=== PATIENT | female | born 1985 | race Caucasian/White ===

== ENCOUNTER 2019-10-06 11:28 | Emergency (ER) | payer BC ==
[2019-10-06] MEDS ORDERED: Sodium Chloride 0.9% 10 ML Syringe FLUSH PRN (11:38)
[2019-10-06] MEDS ORDERED: Ondansetron 4 MG/2 ML SDV IVPUSH ONE (11:38)
[2019-10-06] MEDS ORDERED: HYDROmorphone 1 MG/ML Syringe IVPUSH ONE ×2 (11:39→13:30)
[2019-10-06] MEDS ORDERED: Lactated Ringers 1,000 ML IV SCH (11:45)
--- NOTE | 2019-10-06 12:12 | EDM.PDOC ---
ED HPI GENERAL MEDICAL PROBLEM - General Chief Complaint: PIPEFITTER Problem Stated Complaint: 9WEEK PREG HEAVY BLEEDING/LIGHT HEADED/DIZZY Time Seen by Provider: 10/06/19 11:35 Source of Information: Reports: Patient History Limitations: Reports: No Limitations - History of Present Illness INITIAL COMMENTS - FREE TEXT/NARRATIVE: The patient presents with vaginal bleeding, abdominal pain and pelvic cramps. She is G1 at about 6 weeks gestation. Her LNMP was July 20. She says she had an US 3 days ago and it showed an IUP at 6 weeks 3 days and there was no heart beat. She sees Dr Gutierrez and he gave her some cytotek. The pain and bleeding started this morning at 3am. She was passing strawberry sized clots and possibly some tissue. She is pale and diaphoretic. She feels lightheaded. She has no fever, chest pain or shortness of breath. Onset: Sudden Duration: Hour(s): Location: Reports: Abdomen, Pelvis Quality: Reports: Sharp Severity: Severe Improves with: Reports: None Worsens with: Reports: None Associated Symptoms: Denies: Chest Pain, Cough, Fever/Chills, Headaches, Nausea/ Vomiting, Shortness of Breath Pelvic Pain Score (Numeric/FACES): 10 - Related Data Allergies Allergy/AdvReac Type Severity Reaction Status Date / Time No Known Allergies Allergy Verified 10/06/19 11:36 Home Meds: Home Meds Docosahexaenoic Acid [ Dha] 1 tab PO DAILY 10/06/19 [History] oxyCODONE HCl/Acetaminophen [Percocet 5-325 mg Tablet] 1 - 2 each PO Q6HR PRN # 20 tablet 10/06/19 [Rx] Past Medical History - Past Health History Medical/Surgical History: Denies Medical/Surgical History ED ROS GENERAL - Review of Systems Review Of Systems: See Below Constitutional: Reports: No Symptoms HEENT: Reports: No Symptoms Respiratory: Reports: No Symptoms Cardiovascular: Reports: No Symptoms Endocrine: Reports: No Symptoms GI/Abdominal: Reports: Abdominal Pain. Denies: Nausea, Vomiting : Reports: Other (Pelvic pain with vaginal bleeding) Musculoskeletal: Reports: No Symptoms Skin: Reports: Pallor ED EXAM - Physical Exam Exam: See Below Exam Limited By: No Limitations General Appearance: Mild Distress Ears: Normal External Exam Nose: Normal Inspection Head: Atraumatic, Normocephalic Neck: Normal Inspection Respiratory/Chest: No Respiratory Distress, Lungs Clear, Normal Breath Sounds Cardiovascular: Regular Rate, Rhythm, No Edema, No Murmur GI/Abdominal Exam: Soft, Non-Tender, No Organomegaly, No Mass (Female) Exam: Vaginal Bleeding (Moderate amount of vaginal bleeding a yok sack was removed and appeared intact. I removed some clots and it appears bleeding has slowed down.) Extremities: Normal Inspection Course - Vital Signs Last Recorded V/S: Last Vital Signs Temp 97.6 F 10/06/19 11:38 Pulse 72 10/06/19 11:38 Resp 24 H 10/06/19 11:38 BP 82/61 L 10/06/19 11:38 Pulse Ox 100 10/06/19 11:38 - Orders/Labs/Meds Orders: Active Orders 24 hr Category Date Time Status Pelvic Exam, Set Up [RC] ASDIRECTED Care 10/06/19 11:42 Active Peripheral IV Care [RC] . DIRECTED Care 10/06/19 11:39 Active Lactated Ringers [Ringers, Lactated] 1,000 ml Med 10/06/19 11:45 Active IV ASDIRECTED Sodium Chloride 0.9% [Saline Flush] Med 10/06/19 11:38 Active 10 ml FLUSH ASDIRECTED PRN ED Antiemetic Medication Reflex [OM.PC] Stat Oth 10/06/19 11:39 Ordered Peripheral IV Insertion Adult [OM.PC] Stat Oth 10/06/19 11:38 Ordered Medication Orders Lactated Ringer's (Ringers, Lactated) 1,000 mls @ 1,000 mls/hr IV ASDIRECTED IDANIA Last Admin: 10/06/19 11:48 Dose: 1,000 mls/hr Sodium Chloride (Saline Flush) 10 ml FLUSH ASDIRECTED PRN PRN Reason: Keep Vein Open Last Admin: 10/06/19 11:48 Dose: 10 ml Labs: Laboratory Tests 10/06/19 10/06/19 10/06/19 Range/Units 11:35 11:35 11:35 WBC 11.48 H (3.98-10.04) K/mm3 RBC 4.30 (3.98-5.22) M/mm3 Hgb 13.2 (11.2-15.7) gm/dl Hct 40.1 (34.1-44.9) % MCV 93.3 (79.4-94.8) fl MCH 30.7 (25.6-32.2) pg MCHC 32.9 (32.2-35.5) g/dl RDW Std Deviation 45.9 (36.4-46.3) fL Plt Count 400 H (182-369) K/mm3 MPV 10.2 (9.4-12.3) fl Neut % (Auto) 60.2 (34.0-71.1) % Lymph % (Auto) 30.9 (19.3-51.7) % [place] % (Auto) 7.7 (4.7-12.5) % Eos % (Auto) 0.7 (0.7-5.8) Baso % (Auto) 0.3 (0.1-1.2) % Neut # (Auto) 6.92 H (1.56-6.13) K/mm3 Lymph # (Auto) 3.55 (1.18-3.74) K/mm3 [place] # (Auto) 0.88 H (0.24-0.36) K/mm3 Eos # (Auto) 0.08 (0.04-0.36) K/mm3 Baso # (Auto) 0.03 (0.01-0.08) K/mm3 Manual Slide Review Normal smear Sodium 141 (136-145) mEq/L Potassium 3.4 L (3.5-5.1) mEq/L Chloride 105 (98-107) mEq/L Carbon Dioxide 22 (21-32) mEq/L Anion Gap 17.4 H (5-15) BUN 11 (7-18) mg/dL Creatinine 0.8 (0.55-1.02) mg/dL Est Cr Clr Drug Dosing 93.63 mL/min Estimated GFR (MDRD) > 60 (>60) mL/min BUN/Creatinine Ratio 13.8 L (14-18) Glucose 129 H (74-106) mg/dL Calcium 9.5 (8.5-10.1) mg/dL Total Bilirubin 1.0 (0.2-1.0) mg/dL AST 15 (15-37) U/L ALT 27 (14-59) U/L Alkaline Phosphatase 50 (46-116) U/L Total Protein 7.0 (6.4-8.2) g/dl Albumin 3.9 (3.4-5.0) g/dl Globulin 3.1 gm/dL Albumin/Globulin Ratio 1.3 (1-2) HCG, Quant 3708.0 mIU/mL Blood Type Gel Antibody Screen 10/06/19 Range/Units 11:35 WBC (3.98-10.04) K/mm3 RBC (3.98-5.22) M/mm3 Hgb (11.2-15.7) gm/dl Hct (34.1-44.9) % MCV (79.4-94.8) fl MCH (25.6-32.2) pg MCHC (32.2-35.5) g/dl RDW Std Deviation (36.4-46.3) fL Plt Count (182-369) K/mm3 MPV (9.4-12.3) fl Neut % (Auto) (34.0-71.1) % Lymph % (Auto) (19.3-51.7) % [place] % (Auto) (4.7-12.5) % Eos % (Auto) (0.7-5.8) Baso % (Auto) (0.1-1.2) % Neut # (Auto) (1.56-6.13) K/mm3 Lymph # (Auto) (1.18-3.74) K/mm3 [place] # (Auto) (0.24-0.36) K/mm3 Eos # (Auto) (0.04-0.36) K/mm3 Baso # (Auto) (0.01-0.08) K/mm3 Manual Slide Review Sodium (136-145) mEq/L Potassium (3.5-5.1) mEq/L Chloride (98-107) mEq/L Carbon Dioxide (21-32) mEq/L Anion Gap (5-15) BUN (7-18) mg/dL Creatinine (0.55-1.02) mg/dL Est Cr Clr Drug Dosing mL/min Estimated GFR (MDRD) (>60) mL/min BUN/Creatinine Ratio (14-18) Glucose (74-106) mg/dL Calcium (8.5-10.1) mg/dL Total Bilirubin (0.2-1.0) mg/dL AST (15-37) U/L ALT (14-59) U/L Alkaline Phosphatase (46-116) U/L Total Protein (6.4-8.2) g/dl Albumin (3.4-5.0) g/dl Globulin gm/dL Albumin/Globulin Ratio (1-2) HCG, Quant mIU/mL Blood Type O POSITIVE Gel Antibody Screen Negative Meds: Medications Generic Name Dose Route Start Last Admin Trade Name Freq PRN Reason Stop Dose Admin Lactated Ringer's 1,000 mls @ 1,000 mls/hr 10/06/19 11:45 10/06/19 11:48 Ringers, Lactated IV 1,000 mls/hr ASDIRECTED IDANIA Administration Sodium Chloride 10 ml 10/06/19 11:38 10/06/19 11:48 Saline Flush FLUSH 10 ml ASDIRECTED PRN Administration Keep Vein Open Discontinued Medications Generic Name Dose Route Start Last Admin Trade Name Donq PRN Reason Stop Dose Admin Hydromorphone HCl 1 mg 10/06/19 11:39 10/06/19 11:45 Dilaudid IVPUSH 10/06/19 11:40 1 mg ONETIME ONE Administration Hydromorphone HCl 1 mg 10/06/19 13:30 10/06/19 13:34 Dilaudid IVPUSH 10/06/19 13:31 1 mg ONETIME ONE Administration Ketorolac Tromethamine 30 mg 10/06/19 12:56 10/06/19 13:04 Toradol IVPUSH 10/06/19 12:57 30 mg ONETIME ONE Administration Ondansetron HCl 4 mg 10/06/19 11:38 10/06/19 11:48 Zofran IVPUSH 10/06/19 11:39 4 mg ONETIME ONE Administration - Re-Assessments/Exams Free Text/Narrative Re-Assessment/Exam: 10/06/19 14:12 I ordered an IV NS 1L bolus, zofran 4mg IV, dilaudid 1mg IV, labs, type and screen and an US. Her Hgb was 13.2. Her HCG is 3700 down from 9300 3 days ago. I did a pelvic exam and there was moderate bleeding and a removed a yok sac and it appeared intact. I also removed some clots. The US shows previous intrauterine gestational sac is no longer seen. Focal fluid is seen within the lower cervical canal possibly due to miscarriage in process. Ovaries appear within normal limits. She had more pain so I ordered toradol 30mg IV and dilaudid 1mg IV. I talked to Dr Gutierrez a couple times while the patient is here. 10/06/19 15:02 Her bleeding is better. I will give her another dose of dilaudid before she goes. I will give her something for pain at home and Dr Gutierrez wants her to take her cytotek tomorrow. Departure - Departure Time of Disposition: 15:10 Disposition: Home, Self-Care 01 Condition: Good Clinical Impression: Complete - Discharge Information *PRESCRIPTION DRUG MONITORING PROGRAM REVIEWED*: No *COPY OF PRESCRIPTION DRUG MONITORING REPORT IN PATIENT MARCUS: No Prescriptions: oxyCODONE HCl/Acetaminophen [Percocet 5-325 mg Tablet] 1 - 2 each PO Q6HR PRN # 20 tablet PRN Reason: Pain Referrals: Attila Gutierrez MD [Primary Care Provider] - 1 Week Forms: ED Department Discharge Additional Instructions: Drink plenty of fluids. Take motrin or tylenol for pain. If that does not help try the percocet. Take the cytotec as directed by Dr Gutierrez. Please return if your are worse such as more pain or bleeding. Sepsis Event Note (ED) - Evaluation Sepsis Screening Result: No Definite Risk - Focused Exam Vital Signs: Vital Signs Temp Pulse Resp BP Pulse Ox 10/06/19 11:38 97.6 F 72 24 H 82/61 L 100 - My Orders Last 24 Hours: My Active Orders 10/06/19 11:38 Sodium Chloride 0.9% [Saline Flush] 10 ml FLUSH ASDIRECTED PRN Peripheral IV Insertion Adult [OM.PC] Stat 10/06/19 11:39 Peripheral IV Care [RC] . DIRECTED ED Antiemetic Medication Reflex [OM.PC] Stat 10/06/19 11:42 Pelvic Exam, Set Up [RC] ASDIRECTED 10/06/19 11:45 Lactated Ringers [Ringers, Lactated] 1,000 ml IV ASDIRECTED - Assessment/Plan Last 24 Hours: My Active Orders 10/06/19 11:38 Sodium Chloride 0.9% [Saline Flush] 10 ml FLUSH ASDIRECTED PRN Peripheral IV Insertion Adult [OM.PC] Stat 10/06/19 11:39 Peripheral IV Care [RC] . DIRECTED ED Antiemetic Medication Reflex [OM.PC] Stat 10/06/19 11:42 Pelvic Exam, Set Up [RC] ASDIRECTED 10/06/19 11:45 Lactated Ringers [Ringers, Lactated] 1,000 ml IV ASDIRECTED
--- NOTE | 2019-10-06 12:55 | US ---
1st trimester obstetrical ultrasound: Multiple real-time images were obtained transvaginally. Comparison: Previous obstetrical ultrasound of 10/03/19. Findings: Previous intrauterine gestational sac is no longer seen. Focal fluid is seen within the lower cervical canal possibly due to miscarriage in process. Ovaries appear within normal limits. Impression: 1. Findings suspicious for miscarriage in process. Diagnostic code #3 This report was dictated in MDT
[2019-10-06] MEDS ORDERED: Ketorolac 30 MG/ML SDV IVPUSH ONE (12:56)
[2019-10-06] MEDS ORDERED: HYDROmorphone 0.5 MG/0.5 ML Syringe IVPUSH ONE (15:08)
== END 2019-10-06 15:27 | disposition home or self-care (01) ==
LOC: EEVIPCON 11:28 → JD.ED 11:28
DX: O03.9 Complete or unspecified spontaneous abortion without complication (principal); Z79.899 Other long term (current) drug therapy
CPT/HCPCS: 36415; 76817; 80053; 84702; 85025; 86850; 86900; 86901; 96361; 96374; 96375; 96376; 99284; J1170; J1885; J2405; J7120

== ENCOUNTER 2020-10-09 06:57 | Inpatient (IN) | payer BC ==
[~2020-10-09 06:57] MED LIST: Bupivacaine 0.25% 10 ML SDV ONE
[2020-10-09] MEDS ORDERED: Nalbuphine 10 MG/1 ML Vial IVPUSH PRN (14:48)
[2020-10-09] MEDS ORDERED: Ondansetron 4 MG/2 ML SDV IVPUSH PRN (14:48)
[2020-10-09] MEDS ORDERED: Sodium Chloride 0.9% 10 ML Syringe FLUSH PRN (14:48)
[2020-10-09] MEDS ORDERED: Oxytocin/Lactated Ringers 10 UNIT/1,000 ML BAG IV SCH ×2 (15:00)
[2020-10-09] MEDS: Lactated Ringers 1,000 ML IV SCH ×3 (15:44→23:45)
--- NOTE | 2020-10-09 17:28 | PCM.LDHP ---
L&D History of Present Illness - General Date of Service: 10/09/20 Admit Problem/Dx: Patient Status Order with Admit Dx/Problem 10/09/20 14:48 Patient Status [ADT] Routine Admission Diagnosis/Problem Admission Diagnosis/Problem Source of Information: Patient History Limitations: Reports: No Limitations - History of Present Illness Introduction:: Patient is a 35 y/o at 39 1/7 wks who presented to clinic today with concerns of several days of diarrhea. Evaluation in clinic showed one mild range BP and labs with a slightly elevated AST. 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: , Spontaneous : 2 Para: 0 LMP (Approximate): - Past Surgical History HEENT Surgical History: Reports: Adenoidectomy, Naso-Sinus Surgery, Tonsillectomy Social & Family History - Family History Family Medical History: No Pertinent Family History - Tobacco Use Tobacco Use Status *Q: Never Tobacco User Second Hand Smoke Exposure: No - Caffeine Use Caffeine Use: Reports: Coffee - Alcohol Use Alcohol Use History: No - Recreational Drug Use Recreational Drug Use: No H&P Review of Systems - Review of Systems: Review Of Systems: See Below General: Reports: No Symptoms Pulmonary: Reports: No Symptoms Cardiovascular: Reports: No Symptoms Gastrointestinal: Reports: Diarrhea, Nausea Genitourinary: Reports: No Symptoms Musculoskeletal: Reports: No Symptoms Psychiatric: Reports: No Symptoms Neurological: Reports: No Symptoms L&D Exam - Exam Exam: See Below - Vital Signs Vital Signs: Last Vital Signs Temp 36.6 C 10/09/20 14:48 Pulse 87 10/09/20 14:48 Resp 16 10/09/20 14:48 BP 140/98 H 10/09/20 14:48 Pulse Ox 98 10/09/20 14:48 Weight: 97.795 kg - OB Specific Movement: Active Heart Tones: Present Heart Tones per Min: 140 Heart Rate (FHR) Variability: Moderate (6-25 bmp) Presentation: Vertex - Colvin Score Colvin Score Cervix Position: Midposition Colvin Score Consistency: Soft Colvin Score Effacement: 51-70% Colvin Score Dilation: 3-4 cm Colvin Score 's Station: -2 Colvin Score Total: 8 - Exam General: Alert, Oriented, Cooperative Lungs: Clear to Auscultation, Normal Respiratory Effort Cardiovascular: Regular Rate, Regular Rhythm GI/Abdominal Exam: Soft, Non-Tender Genitourinary: Normal external exam Extremities: Normal Inspection Skin: Warm, Dry, Intact - Patient Data Lab Results Last 24 hrs: Laboratory Results - last 24 hr 10/09/20 10/09/20 Range/Units 15:05 15:05 WBC 7.38 (3.98-10.04) K/mm3 RBC 4.64 (3.98-5.22) M/mm3 Hgb 14.2 (11.2-15.7) gm/dl Hct 43.3 (34.1-44.9) % MCV 93.3 (79.4-94.8) fl MCH 30.6 (25.6-32.2) pg MCHC 32.8 (32.2-35.5) g/dl RDW Std Deviation 50.1 H (36.4-46.3) fL Plt Count 176 L D (182-369) K/mm3 MPV 11.9 (9.4-12.3) fl Neut % (Auto) 82.9 H (34.0-71.1) % Lymph % (Auto) 8.5 L (19.3-51.7) % [place] % (Auto) 7.0 (4.7-12.5) % Eos % (Auto) 1.4 (0.7-5.8) Baso % (Auto) 0.1 (0.1-1.2) % Neut # (Auto) 6.11 (1.56-6.13) K/mm3 Lymph # (Auto) 0.63 L (1.18-3.74) K/mm3 [place] # (Auto) 0.52 H (0.24-0.36) K/mm3 Eos # (Auto) 0.10 (0.04-0.36) K/mm3 Baso # (Auto) 0.01 (0.01-0.08) K/mm3 Manual Slide Review Abnormal smear Blood Type O POSITIVE Gel Antibody Screen Negative Result Diagrams: 10/09/20 15:05 - Problem List (1) 39 weeks gestation of SNOMED Code(s): 09963755 ICD Code: Z3A.39 - 39 WEEKS GESTATION OF Status: Acute Current Visit: Yes (2) Gestational hypertension SNOMED Code(s): 412556540 ICD Code: O13.9 - GESTATIONAL HTN W/O SIGNIFICANT PROTEINURIA, UNSP TRIMESTER Status: Acute Current Visit: Yes Qualifiers: Trimester: third trimester Qualified Code(s): O13.3 - Gestational [-induced] hypertension without significant proteinuria, third trimester Problem List Initiated/Reviewed/Updated: Yes Orders Last 24hrs: Active Orders 24 hr Category Date Time Status Patient Status [ADT] Routine ADT 10/09/20 14:48 Active Activity as Tolerated [RC] PFP Care 10/09/20 14:48 Active Communication Order [RC] ASDIRECTED Care 10/09/20 14:48 Active Heart Tones [RC] ASDIRECTED Care 10/09/20 14:49 Active Non Stress Test [RC] PER UNIT ROUTINE Care 10/09/20 14:48 Active Notify Provider [RC] PFP Care 10/09/20 14:48 Active Notify Provider [RC] PRN Care 10/09/20 14:48 Active Peripheral IV Care [RC] . DIRECTED Care 10/09/20 14:49 Active Pump Management, Intrathecal [RC] ASDIRECTED Care 10/09/20 14:49 Active Vital Signs [RC] PER UNIT ROUTINE Care 10/09/20 14:48 Active Regular Diet [DIET] Diet 10/09/20 Breakfast Active CORONAVIRUS COVID-19 ANTOINETTE [MOLEC] Stat Lab 10/09/20 15:11 Received HEP C VIRUS AB [REF] Stat Lab 10/09/20 15:05 Received RAPID PLASMA REAGIN,RPR [CHEM] Routine Lab 10/09/20 15:05 Received Lactated Ringers [Ringers, Lactated] 1,000 ml Med 10/09/20 15:00 Active IV ASDIRECTED Nalbuphine [Nubain] Med 10/09/20 14:48 Active 10 mg IVPUSH Q2H PRN Ondansetron [Zofran] Med 10/09/20 14:48 Active 4 mg IVPUSH Q4H PRN Oxytocin/Lactated Ringers [Pitocin in LR 10 Units/1,000 Med 10/09/20 15:00 Active ML] 10 unit in 1,000 ml IV .CONTINUOUS Oxytocin/Lactated Ringers [Pitocin in LR 10 Units/1,000 Med 10/09/20 15:00 Active ML] 10 unit in 1,000 ml IV TITRATE Sodium Chloride 0.9% [Saline Flush] Med 10/09/20 14:48 Active 10 ml FLUSH ASDIRECTED PRN Electronic Heart Tones Ext w TOCO [WOMSER] Oth 10/09/20 14:48 Ordered Routine Electronic Heart Tones Internal [WOMSER] Per Unit Ot 10/09/20 14:48 Ordered Routine Peripheral IV Insertion Adult [OM.PC] Routine Ot 10/09/20 14:48 Ordered Resuscitation Status Routine Resus Stat 10/09/20 14:48 Ordered Medication Orders Oxytocin/Lactated Ringer's (Pitocin In Lr 10 Units/1,000 Ml) 10 unit in 1,000 mls @ 12 mls/hr IV TITRATE IDANIA; Protocol Last Admin: 10/09/20 15:44 Dose: 2 munits/min, 12 mls/hr Documented by: NEW Oxytocin/Lactated Ringer's (Pitocin In Lr 10 Units/1,000 Ml) 10 unit in 1,000 mls @ 500 mls/hr IV .CONTINUOUS IDANIA Lactated Ringer's (Ringers, Lactated) 1,000 mls @ 100 mls/hr IV ASDIRECTED IDANIA Last Admin: 10/09/20 15:44 Dose: 100 mls/hr Documented by: NEW Nalbuphine HCl (Nalbuphine 10 Mg/1 Ml Vial) 10 mg IVPUSH Q2H PRN PRN Reason: Pain Ondansetron HCl (Ondansetron 4 Mg/2 Ml Sdv) 4 mg IVPUSH Q4H PRN PRN Reason: Nausea/Vomiting Sodium Chloride (Sodium Chloride 0.9% 10 Ml Syringe) 10 ml FLUSH ASDIRECTED PRN PRN Reason: Keep Vein Open Assessment/Plan Comment:: * Labs done previously in [place]. Will repeat in 0400 if patient still undelivered * Pitocin for IOL. AROM when able * GBS negative, no need for antibiotics * Pain management per patient preference * Anticipate
[2020-10-09] MEDS ORDERED: fentaNYL 100 MCG/2 ML SDV EPIDUR PRN (22:12)
[2020-10-09] MEDS ORDERED: diphenhydrAMINE 50 MG/ML SDV IVPUSH PRN (22:12)
[2020-10-09] MEDS ORDERED: Bupivacaine/fentaNYL/NS 100 ML Bag EPIDUR PRN (22:12)
[2020-10-09] MEDS ORDERED: ePHEDrine 50 MG/ML SDV IVPUSH PRN (22:12)
--- NOTE | 2020-10-09 22:19 | PCM.PREANE ---
Preanesthetic Assessment - Procedure Proposed Procedure: Labor epidural - Anesthesia/Transfusion/Family Hx Anesthesia History: Prior Anesthesia Without Reaction Family History of Anesthesia Reaction: No Transfusion History: No Prior Transfusion(s) Intubation History: Unknown - Review of Systems General: Weakness Pulmonary: No Symptoms Cardiovascular: No Symptoms Gastrointestinal: Diarrhea Neurological: Paresthesia (Sciatic pain down right leg - intermittent) Other: Reports: None - Physical Assessment NPO Status Date: 10/09/20 NPO Status Time: 17:30 Vital Signs: Last Vital Signs Temp 97.8 F 10/09/20 14:48 Pulse 87 10/09/20 14:48 Resp 16 10/09/20 14:48 BP 140/98 H 10/09/20 14:48 Pulse Ox 98 10/09/20 14:48 Height: 1.65 m Weight: 97.795 kg ASA Class: 2 Mental Status: Alert & Oriented x3 Airway Class: Mallampati = 2 Dentition: Reports: Normal Dentition Thyro-Mental Finger Breadths: 3 Mouth Opening Finger Breadths: 3 ROM/Head Extension: Full Lungs: Clear to Auscultation, Normal Respiratory Effort Cardiovascular: Regular Rate, Regular Rhythm - Lab Values: Laboratory Last Values WBC 7.38 K/mm3 (3.98-10.04) 10/09/20 15:05 RBC 4.64 M/mm3 (3.98-5.22) 10/09/20 15:05 Hgb 14.2 gm/dl (11.2-15.7) 10/09/20 15:05 Hct 43.3 % (34.1-44.9) 10/09/20 15:05 MCV 93.3 fl (79.4-94.8) 10/09/20 15:05 MCH 30.6 pg (25.6-32.2) 10/09/20 15:05 MCHC 32.8 g/dl (32.2-35.5) 10/09/20 15:05 RDW Std Deviation 50.1 fL (36.4-46.3) H 10/09/20 15:05 Plt Count 176 K/mm3 (182-369) L D 10/09/20 15:05 MPV 11.9 fl (9.4-12.3) 10/09/20 15:05 Neut % (Auto) 82.9 % (34.0-71.1) H 10/09/20 15:05 Lymph % (Auto) 8.5 % (19.3-51.7) L 10/09/20 15:05 [place] % (Auto) 7.0 % (4.7-12.5) 10/09/20 15:05 Eos % (Auto) 1.4 (0.7-5.8) 10/09/20 15:05 Baso % (Auto) 0.1 % (0.1-1.2) 10/09/20 15:05 Neut # (Auto) 6.11 K/mm3 (1.56-6.13) 10/09/20 15:05 Lymph # (Auto) 0.63 K/mm3 (1.18-3.74) L 10/09/20 15:05 [place] # (Auto) 0.52 K/mm3 (0.24-0.36) H 10/09/20 15:05 Eos # (Auto) 0.10 K/mm3 (0.04-0.36) 10/09/20 15:05 Baso # (Auto) 0.01 K/mm3 (0.01-0.08) 10/09/20 15:05 Manual Slide Review Abnormal smear 10/09/20 15:05 SARS-CoV-2 RNA (ANTOINETTE) Negative (NEGATIVE) 10/09/20 15:11 Blood Type O POSITIVE 10/09/20 15:05 Gel Antibody Screen Negative 10/09/20 15:05 - Allergies Allergies/Adverse Reactions: Allergies Allergy/AdvReac Type Severity Reaction Status Date / Time No Known Allergies Allergy Verified 10/09/20 14:15 - Blood Blood Available: No Product(s) Available: None - Anesthesia Plan Pre-Op Medication Ordered: None - Acknowledgements Anesthesia Type Planned: Epidural Pt an Appropriate Candidate for the Planned Anesthesia: Yes Alternatives and Risks of Anesthesia Discussed w Pt/Guardian: Yes Pt/Guardian Understands and Agrees with Anesthesia Plan: Yes PreAnesthesia Questionnaire - Past Health History Medical/Surgical History: Denies 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: Endocrine/Metabolic History: Reports: Obesity/BMI 30+ - Past Surgical History HEENT Surgical History: Reports: Adenoidectomy, Naso-Sinus Surgery, Tonsillectomy - SUBSTANCE USE Tobacco Use Status *Q: Never Tobacco User Second Hand Smoke Exposure: No Recreational Drug Use History: No - HOME MEDS Home Medications: Home Meds Docosahexaenoic Acid [ Dha] 1 tab PO DAILY 10/06/19 [History] oxyCODONE HCl/Acetaminophen [Percocet 5-325 mg Tablet] 1 - 2 each PO Q6HR PRN #20 tablet 10/06/19 [Rx] - CURRENT (IN HOUSE) MEDS Current Meds: Current Medications Diphenhydramine HCl (Diphenhydramine 50 Mg/Ml Sdv) 25 mg IVPUSH Q6H PRN PRN Reason: pruritis Ephedrine Sulfate (Ephedrine 50 Mg/Ml Sdv) 5 mg IVPUSH ASDIRECTED PRN PRN Reason: Hypotension Fentanyl (Fentanyl 100 Mcg/2 Ml Sdv) 100 mcg EPIDUR Q3H PRN PRN Reason: Pain Fentanyl/Bupivacaine HCl (Bupivacaine/Fentanyl/Ns 100 Ml Bag) 100 ml EPIDUR ASDIRECTED PRN PRN Reason: Pain Oxytocin/Lactated Ringer's (Pitocin In Lr 10 Units/1,000 Ml) 10 unit in 1,000 mls @ 12 mls/hr IV TITRATE IDANIA; Protocol Last Titration: 10/09/20 18:52 Dose: 8 munits/min, 48 mls/hr Documented by: Oxytocin/Lactated Ringer's (Pitocin In Lr 10 Units/1,000 Ml) 10 unit in 1,000 mls @ 500 mls/hr IV .CONTINUOUS IDANIA Lactated Ringer's (Ringers, Lactated) 1,000 mls @ 100 mls/hr IV ASDIRECTED IDANIA Last Admin: 10/09/20 15:44 Dose: 100 mls/hr Documented by: Nalbuphine HCl (Nalbuphine 10 Mg/1 Ml Vial) 10 mg IVPUSH Q2H PRN PRN Reason: Pain Last Admin: 10/09/20 21:44 Dose: 10 mg Documented by: Ondansetron HCl (Ondansetron 4 Mg/2 Ml Sdv) 4 mg IVPUSH Q4H PRN PRN Reason: Nausea/Vomiting Sodium Chloride (Sodium Chloride 0.9% 10 Ml Syringe) 10 ml FLUSH ASDIRECTED PRN PRN Reason: Keep Vein Open
[2020-10-10] MEDS ORDERED: Docusate Sodium 100 MG Cap PO PRN (06:59)
--- NOTE | 2020-10-10 06:59 | PCM.DEL ---
L & D Note - General Info Date of Service: 10/10/20 - Delivery Note Labor: Induced by Oxytocin Delivery Outcome: Livebirth Infant Delivery Method: Spontaneous Vaginal Delivery-Single Delivery Mode: Spontaneous Presentation: Right Occiput Anterior (ABRIL) Nuchal Cord: None Anesthesia Type: Epidural Amniotic Fluid Description: Clear Episiotomy Type: None Laceration: 2nd Degree, Perineal, Vaginal Suture type: Vicryl Suture size: 2-0 Placenta: Intact, Spontaneous Cord: 3 Vessels Estimated Blood Loss: 250 Resuscitation Needed: Yes [place]: Bulb Syringe, Stimulated, Warmed, [place] Used Delivery Comments (Free Text/Narrative):: Patient found to be complete and began pushing. With maternal pushing effort head delivered from ABRIL presentation. No nuchal cord present. With gentle downward traction the shoulders and body delivered. Infant placed on maternal abdomen. Cord clamped and cut. Cord blood obtained Placenta allowed time to separate and expelled intact. Inspection of perineum showed a 2nd degree laceration which was repaired with a 2-0 Vicryl in the typical fashion - General Info Date of Service: 10/10/20 - Patient Data Vitals - Most Recent: Last Vital Signs Temp 36.6 C 10/09/20 14:48 Pulse 87 10/09/20 14:48 Resp 16 10/09/20 14:48 BP 140/98 H 10/09/20 14:48 Pulse Ox 98 10/09/20 14:48 Weight - Most Recent: 97.795 kg - Problem List & Annotations (1) 39 weeks gestation of SNOMED Code(s): 07971482 Code(s): Z3A.39 - 39 WEEKS GESTATION OF Status: Acute Current Visit: Yes (2) Gestational hypertension SNOMED Code(s): 581976206 Code(s): O13.9 - GESTATIONAL HTN W/O SIGNIFICANT PROTEINURIA, UNSP TRIMESTER Status: Acute Current Visit: Yes Qualifiers: Trimester: third trimester Qualified Code(s): O13.3 - Gestational [-induced] hypertension without significant proteinuria, third trimester (3) Vaginal delivery SNOMED Code(s): 651418299 Code(s): O80 - ENCOUNTER FOR FULL-TERM UNCOMPLICATED DELIVERY Status: Acute Current Visit: Yes - Problem List Review Problem List Initiated/Reviewed/Updated: Yes - My Orders Last 24 Hours: My Active Orders 10/09/20 Breakfast Regular Diet [DIET] 10/09/20 14:48 Patient Status [ADT] Routine Activity as Tolerated [RC] PFP Communication Order [RC] ASDIRECTED Non Stress Test [RC] PER UNIT ROUTINE Notify Provider [RC] PFP Notify Provider [RC] PRN Vital Signs [RC] PER UNIT ROUTINE Nalbuphine [Nubain] 10 mg IVPUSH Q2H PRN Ondansetron [Zofran] 4 mg IVPUSH Q4H PRN Sodium Chloride 0.9% [Saline Flush] 10 ml FLUSH ASDIRECTED PRN Electronic Heart Tones Ext w TOCO [WOMSER] Routine Electronic Heart Tones Internal [WOMSER] Per Unit Routine Peripheral IV Insertion Adult [OM.PC] Routine Resuscitation Status Routine 10/09/20 14:49 Heart Tones [RC] ASDIRECTED Peripheral IV Care [RC] . DIRECTED Pump Management, Intrathecal [RC] ASDIRECTED 10/09/20 15:00 Lactated Ringers [Ringers, Lactated] 1,000 ml IV ASDIRECTED Oxytocin/Lactated Ringers [Pitocin in LR 10 Units/1,000 ML] 10 unit in 1,000 ml IV .CONTINUOUS Oxytocin/Lactated Ringers [Pitocin in LR 10 Units/1,000 ML] 10 unit in 1,000 ml IV TITRATE 10/09/20 15:05 HEP C VIRUS AB [REF] Stat 10/10/20 06:57 Patient Status Manage Transfer [TRANSFER] Routine - Assessment Assessment:: PPD#0 - Plan Plan:: * Routine cares * Breast feeding * Monitor BP's * Discharge home in 1-2 days
[2020-10-10] MEDS: Benzocaine/Menthol 20%-0.5% Spray 56 GM Canister TOP PRN (07:55)
[2020-10-10] MEDS: Ibuprofen 600 MG Tab PO PRN ×4 (07:57→22:57)
[2020-10-10] MEDS: Witch Hazel Medicated Pads 40/Jar TOP PRN ×2 (07:57→22:57)
--- NOTE | 2020-10-10 08:21 | PCM48HPAN ---
Post Anesthesia Note - EVALUATION WITHIN 48HRS OF ANESTHETIC Vital Signs in Normal Range: Yes Patient Participated in Evaluation: Yes Respiratory Function Stable: Yes Airway Patent: Yes Cardiovascular Function Stable: Yes Hydration Status Stable: Yes Pain Control Satisfactory: Yes Nausea and Vomiting Control Satisfactory: Yes Mental Status Recovered: Yes Vital Signs: Last Vital Signs Temp 36.6 C 10/09/20 14:48 Pulse 87 10/09/20 14:48 Resp 16 10/09/20 14:48 BP 140/98 H 10/09/20 14:48 Pulse Ox 98 10/09/20 14:48 - COMMENTS/OBSERVATIONS Free Text/Narrative:: Tessa is sitting up in bed nursing her baby this morning. She has been up moving and has voided. She has no further questions or concerns regarding her epidural.
[2020-10-10] MEDS ORDERED: Atropine/Diphenoxylate 0.025-2.5 MG Tab PO ONE (14:41)
[2020-10-11] MEDS: Acetaminophen 325 MG Tab PO PRN ×2 (01:05→06:18)
[2020-10-11] MEDS: Ibuprofen 600 MG Tab PO PRN (03:11)
--- NOTE | 2020-10-11 06:52 | PCM.PNPP ---
- General Info Date of Service: 10/11/20 Functional Status: Reports: Pain Controlled, Tolerating Diet, Ambulating, Urinating - Review of Systems General: Reports: No Symptoms Pulmonary: Reports: No Symptoms Cardiovascular: Reports: No Symptoms Gastrointestinal: Reports: Diarrhea (Rare, lessening. ), Flatus Genitourinary: Reports: No Symptoms - Patient Data Vital Signs - Most Recent: Last Vital Signs Temp 36.2 C 10/11/20 03:13 Pulse 77 10/11/20 03:13 Resp 16 10/11/20 03:13 BP 122/74 10/11/20 03:13 Pulse Ox 98 10/11/20 03:13 Weight - Most Recent: 97.795 kg I&O - Last 24 Hours: Intake & Output 10/10/20 10/10/20 10/11/20 14:59 22:59 06:59 Intake Total 120 240 Balance 120 240 Med Orders - Current: Current Medications Acetaminophen (Acetaminophen 325 Mg Tab) 650 mg PO Q4H PRN PRN Reason: mild pain or fever Last Admin: 10/11/20 06:18 Dose: 650 mg Documented by: Benzocaine/Menthol (Benzocaine/Menthol 20%-0.5% Esmond 56 Gm Canister) 0 gm TOP ASDIRECTED PRN PRN Reason: Perineal Comfort Measure Last Admin: 10/10/20 07:55 Dose: 1 can Documented by: Docusate Sodium (Docusate Sodium 100 Mg Cap) 100 mg PO BID PRN PRN Reason: Constipation Last Admin: 10/10/20 07:58 Dose: 100 mg Documented by: Ibuprofen (Ibuprofen 600 Mg Tab) 600 mg PO Q4H PRN PRN Reason: Mild pain or fever Last Admin: 10/11/20 03:11 Dose: 600 mg Documented by: Elder Koo (Elder Williamel Medicated Pads 40/Jar) 1 pad TOP ASDIRECTED PRN PRN Reason: Perineal Comfort Measure Last Admin: 10/10/20 22:57 Dose: 1 tub Documented by: Discontinued Medications Bupivacaine HCl (Bupivacaine 0.25% 10 Ml Sdv) 10 ml .ROUTE .STK-MED ONE Stop: 10/09/20 00:01 Diphenhydramine HCl (Diphenhydramine 50 Mg/Ml Sdv) 25 mg IVPUSH Q6H PRN PRN Reason: pruritis Diphenoxylate HCl/Atropine (Atropine/Diphenoxylate 0.025-2.5 Mg Tab) 1 tab PO ONETIME ONE Stop: 10/10/20 14:42 Last Admin: 10/10/20 15:06 Dose: 1 tab Documented by: Ephedrine Sulfate (Ephedrine 50 Mg/Ml Sdv) 5 mg IVPUSH ASDIRECTED PRN PRN Reason: Hypotension Last Admin: 10/09/20 23:56 Dose: 5 mg Documented by: Fentanyl (Fentanyl 100 Mcg/2 Ml Sdv) 100 mcg EPIDUR Q3H PRN PRN Reason: Pain Last Admin: 10/09/20 22:17 Dose: 100 mcg Documented by: Fentanyl/Bupivacaine HCl (Bupivacaine/Fentanyl/Ns 100 Ml Bag) 100 ml EPIDUR ASDIRECTED PRN PRN Reason: Pain Last Admin: 10/09/20 22:17 Dose: 100 ml Documented by: Oxytocin/Lactated Ringer's (Pitocin In Lr 10 Units/1,000 Ml) 10 unit in 1,000 mls @ 12 mls/hr IV TITRATE IDANIA; Protocol Last Titration: 10/10/20 04:00 Dose: 83.33 munits/min, 500 mls/hr Documented by: Oxytocin/Lactated Ringer's (Pitocin In Lr 10 Units/1,000 Ml) 10 unit in 1,000 mls @ 500 mls/hr IV .CONTINUOUS IDANIA Last Admin: 10/10/20 04:30 Dose: 500 mls/hr Documented by: Lactated Ringer's (Ringers, Lactated) 1,000 mls @ 100 mls/hr IV ASDIRECTED IDANIA Last Admin: 10/09/20 23:45 Dose: 100 mls/hr Documented by: Nalbuphine HCl (Nalbuphine 10 Mg/1 Ml Vial) 10 mg IVPUSH Q2H PRN PRN Reason: Pain Last Admin: 10/09/20 21:44 Dose: 10 mg Documented by: Ondansetron HCl (Ondansetron 4 Mg/2 Ml Sdv) 4 mg IVPUSH Q4H PRN PRN Reason: Nausea/Vomiting Sodium Chloride (Sodium Chloride 0.9% 10 Ml Syringe) 10 ml FLUSH ASDIRECTED PRN PRN Reason: Keep Vein Open - Interaction Infant Disposition, : [place] in Room with Family Infant Interaction: Holding Infant Feeding: Attempted ; Nursed Fair/Poor, Continues to Breastfeed Support Person: - Recovery Exam Fundal Tone: Firm Fundal Level: 2 Fingerbreadths Below Umbilicus Fundal Placement: Midline Lochia Amount: Small Lochia Color: Rubra/Red Perineum Description: Edematous Other Perinuem Description: Second degree laceration with repair Episiotomy/Laceration: Approximated Bladder Status: Voiding Urinary Elimination: Voided - Exam General: Alert, Oriented, Cooperative GI/Abdominal Exam: Soft - Problem List & Annotations (1) 39 weeks gestation of SNOMED Code(s): 46916522 Code(s): Z3A.39 - 39 WEEKS GESTATION OF Status: Acute (2) Gestational hypertension SNOMED Code(s): 122990609 Code(s): O13.9 - GESTATIONAL HTN W/O SIGNIFICANT PROTEINURIA, UNSP TRIMESTER Status: Acute Qualifiers: Trimester: third trimester Qualified Code(s): O13.3 - Gestational [-induced] hypertension without significant proteinuria, third trimester (3) Vaginal delivery SNOMED Code(s): 427827277 Code(s): O80 - ENCOUNTER FOR FULL-TERM UNCOMPLICATED DELIVERY Status: Acute - Problem List Review Problem List Initiated/Reviewed/Updated: Yes - My Orders Last 24 Hours: My Active Orders 10/10/20 06:59 Acetaminophen [TylenoL] 650 mg PO Q4H PRN Benzocaine/Menthol [Dermoplast Pain Relief Esmond] See Dose Instructions TOP ASDIRECTED PRN Docusate Sodium [Colace] 100 mg PO BID PRN Ibuprofen [Motrin] 600 mg PO Q4H PRN witch Hanane [Tucks] 1 pad TOP ASDIRECTED PRN 10/10/20 06:59 Activity as Tolerated [RC] PER UNIT ROUTINE Up ad Janie [RC] ASDIRECTED Vital Signs [RC] 03,,15,21 Assess Lochia [WOMSER] Per Unit Routine Assess Uterine Involution [WOMSER] Per Unit Routine Breast Pump [WOMSER] Per Unit Routine Perineal Care [OM.PC] Per Unit Routine Peripheral IV Discontinue [OM.PC] Routine Sitz Bath [OM.PC] Per Unit Routine 10/10/20 Breakfast Regular Diet [DIET] Heat Therapy [OM.PC] PRN 10/11/20 07:00 Heat Therapy [JOSE] PRN - Assessment Assessment:: PPD#1 - Plan Plan:: * Routine cares * Breast feeding * Monitor BP's, have been normal range * Discharge home today, BP check in 1 week, check in 3 weeks
--- NOTE | 2020-10-11 10:15 | PCM.DCSUM1 ---
Discharge Summary - Discharge Data Discharge Date: 10/11/20 Discharge Disposition: Home, Self-Care 01 Condition: Good - Referral to Home Health Primary Care Physician: Eliane Ring MD - Discharge Diagnosis/Problem(s) (1) 39 weeks gestation of SNOMED Code(s): 01339917 ICD Code: Z3A.39 - 39 WEEKS GESTATION OF Status: Acute (2) Gestational hypertension SNOMED Code(s): 538678974 ICD Code: O13.9 - GESTATIONAL HTN W/O SIGNIFICANT PROTEINURIA, UNSP TRIMESTER Status: Acute Qualifiers: Trimester: third trimester Qualified Code(s): O13.3 - Gestational [-induced] hypertension without significant proteinuria, third trimester (3) Vaginal delivery SNOMED Code(s): 417544653 ICD Code: O80 - ENCOUNTER FOR FULL-TERM UNCOMPLICATED DELIVERY Status: Acute - Patient Summary/Data Complications: None Consults: None Recommended Follow-up Testing/Procedures: Follow up in 1 week for BP check and 3 weeks for check Hospital Course: 35 y/o at 39 1/7 wks who presented for IOL for findings of clinic elevated BP. Concerns for gestational HTN. Induction done with pitocin. Did have SROM and then progressed well to complete dilation. Underwent an uncomplicated . See delivery note. BP's in normal range. Was discharged home on PPD#1 - Patient Instructions Diet: Regular Diet as Tolerated Activity: As Tolerated Activity, Other: pelvic rest for 6 weeks Driving: May Drive Today Showering/Bathing: May Shower Showering/Bathing, Other: May bathe Notify Provider of: Fever, Increased Pain, Swelling and Redness, Drainage, Nausea and/or Vomiting - Discharge Plan *PRESCRIPTION DRUG MONITORING PROGRAM REVIEWED*: No *COPY OF PRESCRIPTION DRUG MONITORING REPORT IN PATIENT MARCUS: No Home Medications: Home Meds Docosahexaenoic Acid [ Dha] 1 tab PO DAILY 10/06/19 [History] Docusate Sodium [Colace] 100 mg PO BID PRN cap 10/11/20 [Rx] Patient Handouts: Mastitis, and Self-Care, [id number], Breast Engorgement, Care After Vaginal Delivery Referrals: Eliane Ring MD [Primary Care Provider] - (1 week for BP check 3 weeks for check ) - Discharge Summary/Plan Comment DC Time >30 min.: No - Patient Data Vitals - Most Recent: Last Vital Signs Temp 36.2 C 10/11/20 03:13 Pulse 77 10/11/20 03:13 Resp 16 10/11/20 03:13 BP 122/74 10/11/20 03:13 Pulse Ox 98 10/11/20 03:13 Weight - Most Recent: 97.795 kg I&O - Last 24 hours: Intake & Output 10/10/20 10/11/20 10/11/20 22:59 06:59 14:59 Intake Total 240 Balance 240 Lab Results - Last 24 hrs: Laboratory Results - last 24 hr 10/11/20 10/11/20 Range/Units 07:12 07:12 WBC 9.22 (3.98-10.04) K/mm3 RBC 3.43 L (3.98-5.22) M/mm3 Hgb 10.5 L D (11.2-15.7) gm/dl Hct 32.2 L (34.1-44.9) % MCV 93.9 (79.4-94.8) fl MCH 30.6 (25.6-32.2) pg MCHC 32.6 (32.2-35.5) g/dl RDW Std Deviation 48.6 H (36.4-46.3) fL Plt Count 205 (182-369) K/mm3 MPV 11.1 (9.4-12.3) fl Sodium 141 (136-145) mEq/L Potassium 4.1 (3.5-5.1) mEq/L Chloride 108 H (98-107) mEq/L Carbon Dioxide 22 (21-32) mEq/L Anion Gap 15.1 H (5-15) BUN 8 (7-18) mg/dL Creatinine 0.8 (0.55-1.02) mg/dL Est Cr Clr Drug Dosing 89.16 mL/min Estimated GFR (MDRD) > 60 (>60) mL/min BUN/Creatinine Ratio 10.0 L (14-18) Glucose 84 (70-99) mg/dL Calcium 8.3 L (8.5-10.1) mg/dL Total Bilirubin 0.2 (0.2-1.0) mg/dL AST 48 H (15-37) U/L ALT 54 (14-59) U/L Alkaline Phosphatase 136 H (46-116) U/L Total Protein 5.3 L (6.4-8.2) g/dl Albumin 2.3 L (3.4-5.0) g/dl Globulin 3.0 gm/dL Albumin/Globulin Ratio 0.8 L (1-2) Med Orders - Current: Current Medications Acetaminophen (Acetaminophen 325 Mg Tab) 650 mg PO Q4H PRN PRN Reason: mild pain or fever Last Admin: 10/11/20 06:18 Dose: 650 mg Documented by: Benzocaine/Menthol (Benzocaine/Menthol 20%-0.5% [place] 56 Gm Canister) 0 gm TOP ASDIRECTED PRN PRN Reason: Perineal Comfort Measure Last Admin: 10/10/20 07:55 Dose: 1 can Documented by: Docusate Sodium (Docusate Sodium 100 Mg Cap) 100 mg PO BID PRN PRN Reason: Constipation Last Admin: 10/10/20 07:58 Dose: 100 mg Documented by: Ibuprofen (Ibuprofen 600 Mg Tab) 600 mg PO Q4H PRN PRN Reason: Mild pain or fever Last Admin: 10/11/20 03:11 Dose: 600 mg Documented by: Elder Koo (Witch Hanane Medicated Pads 40/Jar) 1 pad TOP ASDIRECTED PRN PRN Reason: Perineal Comfort Measure Last Admin: 10/10/20 22:57 Dose: 1 tub Documented by: Discontinued Medications Bupivacaine HCl (Bupivacaine 0.25% 10 Ml Sdv) 10 ml .ROUTE .STK-MED ONE Stop: 10/09/20 00:01 Diphenhydramine HCl (Diphenhydramine 50 Mg/Ml Sdv) 25 mg IVPUSH Q6H PRN PRN Reason: pruritis Diphenoxylate HCl/Atropine (Atropine/Diphenoxylate 0.025-2.5 Mg Tab) 1 tab PO ONETIME ONE Stop: 10/10/20 14:42 Last Admin: 10/10/20 15:06 Dose: 1 tab Documented by: Ephedrine Sulfate (Ephedrine 50 Mg/Ml Sdv) 5 mg IVPUSH ASDIRECTED PRN PRN Reason: Hypotension Last Admin: 10/09/20 23:56 Dose: 5 mg Documented by: Fentanyl (Fentanyl 100 Mcg/2 Ml Sdv) 100 mcg EPIDUR Q3H PRN PRN Reason: Pain Last Admin: 10/09/20 22:17 Dose: 100 mcg Documented by: Fentanyl/Bupivacaine HCl (Bupivacaine/Fentanyl/Ns 100 Ml Bag) 100 ml EPIDUR ASDIRECTED PRN PRN Reason: Pain Last Admin: 10/09/20 22:17 Dose: 100 ml Documented by: Oxytocin/Lactated Ringer's (Pitocin In Lr 10 Units/1,000 Ml) 10 unit in 1,000 mls @ 12 mls/hr IV TITRATE IDANIA; Protocol Last Titration: 10/10/20 04:00 Dose: 83.33 munits/min, 500 mls/hr Documented by: Oxytocin/Lactated Ringer's (Pitocin In Lr 10 Units/1,000 Ml) 10 unit in 1,000 mls @ 500 mls/hr IV .CONTINUOUS IDANIA Last Admin: 10/10/20 04:30 Dose: 500 mls/hr Documented by: Lactated Ringer's (Ringers, Lactated) 1,000 mls @ 100 mls/hr IV ASDIRECTED IDANIA Last Admin: 10/09/20 23:45 Dose: 100 mls/hr Documented by: Nalbuphine HCl (Nalbuphine 10 Mg/1 Ml Vial) 10 mg IVPUSH Q2H PRN PRN Reason: Pain Last Admin: 10/09/20 21:44 Dose: 10 mg Documented by: Ondansetron HCl (Ondansetron 4 Mg/2 Ml Sdv) 4 mg IVPUSH Q4H PRN PRN Reason: Nausea/Vomiting Sodium Chloride (Sodium Chloride 0.9% 10 Ml Syringe) 10 ml FLUSH ASDIRECTED PRN PRN Reason: Keep Vein Open
[2020-10-11] MEDS: Benzocaine/Menthol 20%-0.5% Spray 56 GM Canister TOP PRN (12:11)
== END 2020-10-11 14:20 | disposition home or self-care (01) | DRG 560 ==
LOC: JD.OB 06:57 → OBSVTOIN 10-10 06:57
PROVIDERS: ADMIT Obstetrics & Gynecology; ATTEND Obstetrics & Gynecology
PROC: 10E0XZZ Delivery of Products of Conception, External Approach (ICD-10-PCS; principal; 2020-10-10)
PROC: 3E033VJ Introduction of Other Hormone into Peripheral Vein, Percutaneous Approach (ICD-10-PCS; 2020-10-10)
PROC: 0KQM0ZZ Repair Perineum Muscle, Open Approach (ICD-10-PCS; 2020-10-10)
PROC: 3E0R3BZ Introduction of Anesthetic Agent into Spinal Canal, Percutaneous Approach (ICD-10-PCS; 2020-10-10)
DX: O13.4 Gestational [pregnancy-induced] hypertension without significant proteinuria, complicating childbirth (principal); Z37.0 Single live birth; O70.1 Second degree perineal laceration during delivery; O99.214 Obesity complicating childbirth; E66.9 Obesity, unspecified; Z20.822 Contact with and (suspected) exposure to COVID-19; Z3A.39 39 weeks gestation of pregnancy
CPT/HCPCS: 01967; 36415; 51702; 59025; 59409; 80053; 85025; 85027; 86592; 86803; 86850; 86900; 86901; A9270-GY; J2300; J2590; J3010; J3490; J7120; U0002

== ENCOUNTER 2020-10-27 15:06 | Emergency (ER) | payer BC ==
[2020-10-27] MEDS ORDERED: Sodium Chloride 0.9% 10 ML Syringe FLUSH PRN (15:38)
[2020-10-27] MEDS ORDERED: Sodium Chloride 0.9% 1,000 ML IV SCH (15:45)
--- NOTE | 2020-10-27 18:06 | EDM.PDOC ---
ED HPI GENERAL MEDICAL PROBLEM - General Chief Complaint: Fever Stated Complaint: FEVER,NO APPETIATE Time Seen by Provider: 10/27/20 15:21 Source of Information: Reports: Patient, Family History Limitations: Reports: No Limitations - History of Present Illness INITIAL COMMENTS - FREE TEXT/NARRATIVE: The patient presents with her for fever, diarrhea and not feeling right. This all started before she gave in September. She had diarrhea and elevated liver enzymes. She gave on the . She had a perineal tear that needed repair. She has had no pain or drainage from that. She has been having diarrhea. She has tried immodium and that helps for awhile and she gets constipated. She takes a stool softener and then has diarrhea again. She also has been having a fever, generalized weakness, nausea and no appetite. She had a temp of 103 at home. She has a slight fever today. She has no cough, congestion, runny nose, chest pain, shortness of breath, abdominal pain, or dysuria. She has no more vaginal bleeding. She has no discharge from the wound and they last time she saw her OB doctor Dr Ring it looked good. She did see Amy Cahvez and she checked for C-dif and cultures of her stool. Onset: Gradual Duration: Week(s): Location: Reports: Head Quality: Reports: Ache Severity: Mild Improves with: Reports: None Worsens with: Reports: None Associated Symptoms: Reports: Fever/Chills, Headaches, Nausea/Vomiting. Denies: Chest Pain, Cough, Shortness of Breath Headache Pain Score (Numeric/FACES): 4 - Related Data Allergies Allergy/AdvReac Type Severity Reaction Status Date / Time No Known Allergies Allergy Verified 10/27/20 15:16 Home Meds: Home Meds Docosahexaenoic Acid [ Dha] 1 tab PO DAILY 10/06/19 [History] Docusate Sodium [Colace] 100 mg PO BID PRN cap 10/11/20 [Rx] Past Medical History - Past Health History Medical/Surgical History: Denies Medical/Surgical History HEENT History: Reports: Sinusitis [employer] History: Reports: , Spontaneous Endocrine/Metabolic History: Reports: Obesity/BMI 30+ - Past Surgical History HEENT Surgical History: Reports: Adenoidectomy, Naso-Sinus Surgery, Tonsillectomy Social & Family History - Family History Family Medical History: No Pertinent Family History - Tobacco Use Tobacco Use Status *Q: Never Tobacco User - Caffeine Use Caffeine Use: Reports: Coffee - Recreational Drug Use Recreational Drug Use: No ED ROS GENERAL - Review of Systems Review Of Systems: See Below Constitutional: Reports: Fever, Malaise, Weakness, Fatigue HEENT: Reports: No Symptoms Respiratory: Reports: No Symptoms Cardiovascular: Reports: No Symptoms Endocrine: Reports: Fatigue GI/Abdominal: Reports: Diarrhea, Nausea. Denies: Abdominal Pain, Vomiting : Reports: No Symptoms Musculoskeletal: Reports: No Symptoms Skin: Reports: No Symptoms ED EXAM, SEPSIS - Physical Exam Exam: See Below Exam Limited By: No Limitations General Appearance: Alert, No Apparent Distress Ears: Normal External Exam Nose: Normal Inspection Head: Atraumatic, Normocephalic Neck: Normal Inspection Respiratory/Chest: No Respiratory Distress, Lungs Clear, Normal Breath Sounds Cardiovascular: Regular Rate, Rhythm, No Edema, No Murmur GI/Abdominal Exam: Soft, Non-Tender, No Organomegaly, No Mass Back: Normal Inspection Extremities: Normal Inspection Neurological: Alert, Oriented, No Motor/Sensory Deficits Course - Vital Signs Last Recorded V/S: Last Vital Signs Temp 99.6 F 10/27/20 15:12 Pulse 121 H 10/27/20 15:12 Resp 16 10/27/20 15:12 BP 141/89 H 10/27/20 15:12 Pulse Ox 97 10/27/20 15:12 - Orders/Labs/Meds Orders: Active Orders 24 hr Category Date Time Status Cardiac Monitoring [RC] . DIRECTED Care 10/27/20 15:38 Active Peripheral IV Care [RC] . DIRECTED Care 10/27/20 15:38 Active CULTURE BLOOD [BC] Stat Lab 10/27/20 16:00 Received CULTURE BLOOD [BC] Stat Lab 10/27/20 16:05 Received Sodium Chloride 0.9% [Normal Saline] 1,000 ml Med 10/27/20 15:45 Active IV .BOLUS Sodium Chloride 0.9% [Saline Flush] Med 10/27/20 15:38 Active 10 ml FLUSH ASDIRECTED PRN cefTRIAXone [Rocephin] 1 gm Med 10/27/20 18:22 Ordered Sodium Chloride 0.9% [Normal Saline] 100 ml IV ONETIME Blood Culture x2 Reflex Set [OM.PC] Stat Oth 10/27/20 15:39 Ordered Peripheral IV Insertion Adult [OM.PC] Stat Oth 10/27/20 15:38 Ordered Medication Orders Sodium Chloride (Normal Saline) 1,000 mls @ 1,000 mls/hr IV .BOLUS IDANIA Last Admin: 10/27/20 15:42 Dose: 1,000 mls/hr Documented by: EFRAÍN Sodium Chloride (Sodium Chloride 0.9% 10 Ml Syringe) 10 ml FLUSH ASDIRECTED PRN PRN Reason: Keep Vein Open Last Admin: 10/27/20 15:42 Dose: 10 ml Documented by: EFRAÍN Labs: Laboratory Tests 10/27/20 10/27/20 10/27/20 Range/Units 15:30 15:30 15:48 WBC 16.48 H (3.98-10.04) K/mm3 RBC 4.30 (3.98-5.22) M/mm3 Hgb 13.1 D (11.2-15.7) gm/dl Hct 40.2 (34.1-44.9) % MCV 93.5 (79.4-94.8) fl MCH 30.5 (25.6-32.2) pg MCHC 32.6 (32.2-35.5) g/dl RDW Std Deviation 46.0 (36.4-46.3) fL Plt Count 496 H D (182-369) K/mm3 MPV 10.0 (9.4-12.3) fl Neut % (Auto) 87.7 H (34.0-71.1) % Lymph % (Auto) 5.3 L (19.3-51.7) % Hill % (Auto) 5.4 (4.7-12.5) % Eos % (Auto) 1.2 (0.7-5.8) Baso % (Auto) 0.2 (0.1-1.2) % Neut # (Auto) 14.46 H (1.56-6.13) K/mm3 Lymph # (Auto) 0.88 L (1.18-3.74) K/mm3 Hill # (Auto) 0.89 H (0.24-0.36) K/mm3 Eos # (Auto) 0.19 (0.04-0.36) K/mm3 Baso # (Auto) 0.03 (0.01-0.08) K/mm3 Manual Slide Review Abnormal smear Sodium 141 (136-145) mEq/L Potassium 3.5 (3.5-5.1) mEq/L Chloride 104 (98-107) mEq/L Carbon Dioxide 22 (21-32) mEq/L Anion Gap 18.5 H (5-15) BUN 11 (7-18) mg/dL Creatinine 1.0 (0.55-1.02) mg/dL Est Cr Clr Drug Dosing 71.33 mL/min Estimated GFR (MDRD) > 60 (>60) mL/min BUN/Creatinine Ratio 11.0 L (14-18) Glucose 97 (70-99) mg/dL Calcium 8.6 (8.5-10.1) mg/dL Total Bilirubin 0.6 (0.2-1.0) mg/dL AST 24 (15-37) U/L ALT 60 H (14-59) U/L Alkaline Phosphatase 128 H (46-116) U/L C-Reactive Protein < 0.2 (<1.0) mg/dL Total Protein 7.3 (6.4-8.2) g/dl Albumin 3.9 (3.4-5.0) g/dl Globulin 3.4 gm/dL Albumin/Globulin Ratio 1.2 (1-2) Urine Color (Yellow) Urine Appearance (Clear) Urine pH (5.0-8.0) Ur Specific [place] (1.005-1.030) Urine Protein (Negative) Urine Glucose (UA) (Negative) Urine Ketones (Negative) Urine Occult Blood (Negative) Urine Nitrite (Negative) Urine Bilirubin (Negative) Urine Urobilinogen (0.2-1.0) Ur Leukocyte Esterase (Negative) Urine RBC (0-5) /hpf Urine WBC (0-5) /hpf Ur Squamous Epith Cells (0-5) /hpf Urine Bacteria (FEW) /hpf Urine Mucus (FEW) /hpf SARS-CoV-2 RNA ([place]) Negative (NEGATIVE) 10/27/20 Range/Units 16:13 WBC (3.98-10.04) K/mm3 RBC (3.98-5.22) M/mm3 Hgb (11.2-15.7) gm/dl Hct (34.1-44.9) % MCV (79.4-94.8) fl MCH (25.6-32.2) pg MCHC (32.2-35.5) g/dl RDW Std Deviation (36.4-46.3) fL Plt Count (182-369) K/mm3 MPV (9.4-12.3) fl Neut % (Auto) (34.0-71.1) % Lymph % (Auto) (19.3-51.7) % Hill % (Auto) (4.7-12.5) % Eos % (Auto) (0.7-5.8) Baso % (Auto) (0.1-1.2) % Neut # (Auto) (1.56-6.13) K/mm3 Lymph # (Auto) (1.18-3.74) K/mm3 Hill # (Auto) (0.24-0.36) K/mm3 Eos # (Auto) (0.04-0.36) K/mm3 Baso # (Auto) (0.01-0.08) K/mm3 Manual Slide Review Sodium (136-145) mEq/L Potassium (3.5-5.1) mEq/L Chloride (98-107) mEq/L Carbon Dioxide (21-32) mEq/L Anion Gap (5-15) BUN (7-18) mg/dL Creatinine (0.55-1.02) mg/dL Est Cr Clr Drug Dosing mL/min Estimated GFR (MDRD) (>60) mL/min BUN/Creatinine Ratio (14-18) Glucose (70-99) mg/dL Calcium (8.5-10.1) mg/dL Total Bilirubin (0.2-1.0) mg/dL AST (15-37) U/L ALT (14-59) U/L Alkaline Phosphatase (46-116) U/L C-Reactive Protein (<1.0) mg/dL Total Protein (6.4-8.2) g/dl Albumin (3.4-5.0) g/dl Globulin gm/dL Albumin/Globulin Ratio (1-2) Urine Color Light yellow (Yellow) Urine Appearance Clear (Clear) Urine pH 6.5 (5.0-8.0) Ur Specific [place] 1.010 (1.005-1.030) Urine Protein Negative (Negative) Urine Glucose (UA) Negative (Negative) Urine Ketones 1+ H (Negative) Urine Occult Blood Negative (Negative) Urine Nitrite Negative (Negative) Urine Bilirubin Negative (Negative) Urine Urobilinogen 0.2 (0.2-1.0) Ur Leukocyte Esterase Negative (Negative) Urine RBC Not seen (0-5) /hpf Urine WBC Not seen (0-5) /hpf Ur Squamous Epith Cells Not seen (0-5) /hpf Urine Bacteria Rare (FEW) /hpf Urine Mucus Rare (FEW) /hpf SARS-CoV-2 RNA ([place]) (NEGATIVE) Meds: Medications Generic Name Dose Route Start Last Admin Trade Name Freq PRN Reason Stop Dose Admin Sodium Chloride 1,000 mls @ 1,000 mls/hr 10/27/20 15:45 10/27/20 15:42 Normal Saline IV 1,000 mls/hr .BOLUS IDANIA Administration Sodium Chloride 10 ml 10/27/20 15:38 10/27/20 15:42 Sodium Chloride 0.9% 10 Ml Syringe FLUSH 10 ml ASDIRECTED PRN Administration Keep Vein Open - Re-Assessments/Exams Free Text/Narrative Re-Assessment/Exam: 10/27/20 18:13 I ordered an IV NS 1L bolus, labs, UA, blood cultures and COVID 19. The COVID 19 is negative. Her WBC is elevated at 16.48. Her platelets were elevated at 496. Her anion gap was elevated at 18.5. Her ALT is slightly elevated at 60. Her alk phos is elevated at 128. Her CRP is normal. Her UA shows no UTI. I called Dr Ring and she came to do a pelvic exam and that all looked good. I do have blood cultures pending. I may give her a dose of rocephin until I get results back. Departure - Departure Time of Disposition: 18:30 Disposition: Home, Self-Care 01 Condition: Good Clinical Impression: Fever of unknown origin Diarrhea Qualifiers: Diarrhea type: unspecified type Qualified Code(s): R19.7 - Diarrhea, unspecified - Discharge Information *PRESCRIPTION DRUG MONITORING PROGRAM REVIEWED*: Not Applicable *COPY OF PRESCRIPTION DRUG MONITORING REPORT IN PATIENT MARCUS: Not Applicable Referrals: Shira Caceres MD [Primary Care Provider] - 1 Week Forms: ED Department Discharge Additional Instructions: Drink plenty of fluid. Follow up with your doctor. Please return if you are worse. I will call you with culture results when I get them. Sepsis Event Note (ED) - Evaluation Sepsis Screening Result: No Definite Risk - Focused Exam Vital Signs: Vital Signs Temp Pulse Resp BP Pulse Ox 10/27/20 15:12 99.6 F 121 H 16 141/89 H 97 - My Orders Last 24 Hours: My Active Orders 10/27/20 15:38 Cardiac Monitoring [RC] . DIRECTED Peripheral IV Care [RC] . DIRECTED Sodium Chloride 0.9% [Saline Flush] 10 ml FLUSH ASDIRECTED PRN Peripheral IV Insertion Adult [OM.PC] Stat 10/27/20 15:39 Blood Culture x2 Reflex Set [OM.PC] Stat 10/27/20 15:45 Sodium Chloride 0.9% [Normal Saline] 1,000 ml IV .BOLUS 10/27/20 16:00 CULTURE BLOOD [BC] Stat 10/27/20 16:05 CULTURE BLOOD [BC] Stat 10/27/20 18:22 cefTRIAXone [Rocephin] 1 gm Sodium Chloride 0.9% [Normal Saline] 100 ml IV ONETIME - Assessment/Plan Last 24 Hours: My Active Orders 10/27/20 15:38 Cardiac Monitoring [RC] . DIRECTED Peripheral IV Care [RC] . DIRECTED Sodium Chloride 0.9% [Saline Flush] 10 ml FLUSH ASDIRECTED PRN Peripheral IV Insertion Adult [OM.PC] Stat 10/27/20 15:39 Blood Culture x2 Reflex Set [OM.PC] Stat 10/27/20 15:45 Sodium Chloride 0.9% [Normal Saline] 1,000 ml IV .BOLUS 10/27/20 16:00 CULTURE BLOOD [BC] Stat 10/27/20 16:05 CULTURE BLOOD [BC] Stat 10/27/20 18:22 cefTRIAXone [Rocephin] 1 gm Sodium Chloride 0.9% [Normal Saline] 100 ml IV ONETIME
[2020-10-27] MEDS ORDERED: cefTRIAXone 1 GM in Sodium Chloride 0.9% 100 ML IV ONE (18:22)
== END 2020-10-27 19:16 | disposition home or self-care (01) ==
LOC: JD.ED 15:06
DX: R19.7 Diarrhea, unspecified (principal); R50.9 Fever, unspecified; E66.9 Obesity, unspecified; Z68.31 Body mass index [BMI] 31.0-31.9, adult; Z20.822 Contact with and (suspected) exposure to COVID-19
CPT/HCPCS: 36415; 80053; 81001; 85025; 86140; 87040; 87635; 96365; 99283; J0696; J7030; U0002